=== PATIENT | male | born 1960 | race Caucasian/White ===

== ENCOUNTER 2022-08-01 15:05 | Emergency (ER) | payer MEDICARE, SELFPAY ==
--- NOTE | 2022-08-01 17:32 | EXP.UTC ---
Discharge Plan Disposition Patient Disposition: Home, Self-Care Condition: Good Referrals Follow up/Referrals: Bravo Anderson JR, MD [Physician] - See instructions Roger Fenton MD [Primary Care Provider] - See instructions Activity Restrictions/Add. Instructions Additional Instructions/Restrictions: Rest the extremity. Take tylenol for pain since you are unable to take ibuprofen. Follow up with Dr. Anderson (orthopedics). I put in a referral but you need to call his office and schedule an appointment. Follow up with your regular doctor. GO TO THE ER FOR ANY WORSENING SYMPTOMS Clinical Impressions Clinical Impression: Arm pain, right Instructions Patient Instructions: DI for Shoulder Pain Discharge ED Provider: Ryan Souza [facility] [place] General Stated complaint: [id number]@home fell, pain in Rt shoulder Time Seen by Provider: 08/01/22 17:31 History of Present Illness Provider Complaint: He states that yesterday he fell from sliding on snow and tripping on a water hose. He came down on his right shoulder and right upper arm. He c/o right shoulder and upper arm pain that is worse when he tries to use his arm much. Related Data Allergies Allergy/AdvReac Type Severity Reaction Status Date / Time No Known Allergies Allergy Verified 08/01/22 17:37 [facility] Disclaimer: The information contained in this section may have been updated after the patient was seen, as this information can be updated by other users. Social History Smoking Status: Never smoker alcohol intake: never current occupational status: employed Travel in the last 8 weeks: None ROS Obtained: Yes All systems reviewed & no additional complaints except as documented Constitutional Constitutional: Denies chills and Denies fever(s) Eyes Eyes: Denies eye discharge ENT Ears, Nose, Mouth, and Throat: Denies dizziness, Denies otalgia and Denies sore throat Cardiovascular Cardiovascular: Denies chest pain Respiratory Respiratory: Denies shortness of breath, Denies chest congestion, Denies cough, Denies stridor and Denies wheezing Gastrointestinal Gastrointestingal: Denies nausea or vomiting Musculoskeletal Musculoskeletal: Reports as per HPI Integumentary/Breasts Skin/Breast: Denies rash Neurologic Neurologic: Denies dizziness and Denies paresthesias Allergic/Immunologic Allergic/Immunologic: Denies wheezing Physical Exam General General appearance: alert and in no apparent distress Head Head exam: atraumatic, normocephalic and normal inspection Eye Eye exam: Present normal appearance, PERRL and EOMI ENT ENT exam: Present normal exam, normal oropharynx, mucous membranes moist, TM's normal bilaterally and normal external ear exam Neck Neck exam: Present normal inspection, full ROM and trachea midline; Absent meningismus or lymphadenopathy Chest Chest inspection: Present normal inspection and symmetric chest wall rise; Absent tenderness Respiratory Respiratory exam: Present normal lung sounds bilaterally; Absent respiratory distress Cardiovascular Cardiovascular exam: Present regular rate and normal rhythm; Absent JVD Abdominal Exam Abdominal exam: Present soft and normal bowel sounds; Absent distention, tenderness or guarding Extremities Exam Extremities exam: Present normal capillary refill; Absent calf tenderness Expanded Upper Extremity Exam Right: Shoulder exam: Present full ROM and tenderness; Absent swelling, abrasion, laceration, ecchymosis, deformity, crepitus, dislocation, erythema or tenderness over AC joint Arm exam: Present full ROM and tenderness; Absent swelling, abrasion, laceration, ecchymosis, deformity, crepitus, erythema or other Neuromotor exam: Normal wrist extension and thumb opposition Neurosensory exam: Normal radial nerve and ulnar nerve Vascular exam: Normal capillary refill Back Exam Back exam: Present normal inspecti
[2022-08-01 17:35] VITALS: BP 145/78; PULSE 73; RESP 17; TEMP 36.9; O2SAT 95; BMI 28.8
--- NOTE | 2022-08-01 17:37 | XR_ITS ---
PROCEDURE INFORMATION: Exam: XR Right Humerus Exam date and time: 08/01/2022 6:20 PM Age: 61 years old Clinical indication: Injury or trauma; Fall; Blunt trauma (contusions or hematomas); Arm, upper; Right TECHNIQUE: Imaging protocol: Radiologic exam of the Right humerus. Views: 2 or more views. COMPARISON: CR XR SHOULDER RT MIN 2V 08/01/2022 6:17 PM FINDINGS: Bones/joints: Degenerative changes in the glenohumeral joint and acromioclavicular joint. No humeral shaft fracture. Soft tissues: Normal. IMPRESSION: No humeral shaft fracture.
--- NOTE | 2022-08-01 17:37 | XR_ITS ---
PROCEDURE INFORMATION: Exam: XR Right Shoulder Exam date and time: 08/01/2022 6:17 PM Age: 61 years old Clinical indication: Injury or trauma; Fall; Blunt trauma (contusions or hematomas); Shoulder; Right TECHNIQUE: Imaging protocol: Radiologic exam of the Right shoulder. Views: 2 or more views. COMPARISON: No relevant prior studies available. FINDINGS: Bones/joints: Degenerative changes in the acromioclavicular joint and glenohumeral joint. There is no evidence of acute fracture.There is no evidence of malalignment or dislocation. Soft tissues: Normal. IMPRESSION: There is no evidence of acute fracture.There is no evidence of malalignment or dislocation.
[2022-08-01 19:07] VITALS: BP 145/78; PULSE 73; RESP 17; TEMP 36.9
== END 2022-08-01 19:07 | disposition home or self-care (01) ==
PROVIDERS: Emergency Provider Nurse Practitioner Family; PCP Family Medicine
DX: M79.601 Pain in right arm; M25.511 Pain in right shoulder; W00.2XXA Other fall from one level to another due to ice and snow, initial encounter
CPT/HCPCS: 73030; 73060; 99212; G0463

== ENCOUNTER 2022-08-18 13:59 | Emergency (ER) | payer MEDICARE, OTHER, SELFPAY ==
--- NOTE | 2022-08-18 14:04 | XR_ITS ---
FINAL REPORT CLINICAL HISTORY: PAIN fall x 3 weeks ago and lifting awning from camper felt pop in shoulder today pain limited rom FINDINGS: RIGHT SHOULDER: 3 views of the right shoulder werer obtained. There is no acute fracture or dislocation. There are mild degenerative changes of the acromioclavicular joint and glenohumeral joint. Soft tissues are unremarkable. IMPRESSION: Degenerative changes without acute fracture Reviewed, Interpreted and Dictated by Isac Greenfield III, MD Transcribed by Dulce Monet Authenticated and [facility]
[2022-08-18 14:20] VITALS: BP 134/80; PULSE 70; RESP 18; TEMP 36.8; O2SAT 98; BMI 28.8
--- NOTE | 2022-08-18 14:34 | EXP.UTC ---
Discharge Plan Disposition Patient Disposition: Home, Self-Care Condition: Good Prescriptions Prescriptions: No Action No Known Home Medications Referrals Follow up/Referrals: Roger Fenton MD [Primary Care Provider] - See instructions Jayshree Sarkar PA [Physician Store Standards Associate] - 08/23/22 9:30 am Activity Restrictions/Add. Instructions Additional Instructions/Restrictions: *RICE, Rest the extremity, Ice 15-20 minutes 3-4 times daily, Compress- wear the ayaka wrap as discussed as much as possible to help reduce swelling and pain, Elevate the extremity when at rest *Elevate when resting? *Since you was told not take Ibuprofen you can take Tylenol Make sure to keep appointment with Orthopedics as scheduled Clinical Impressions Clinical Impression: Right shoulder pain Instructions Patient Instructions: How To Perform RICE (Rest, Ice, Compress, Elevate) Discharge ED Provider: Marybel Murphy [facility] [place] General Stated complaint: shoulder pain Time Seen by Provider: 08/18/22 14:35 History of Present Illness Provider Complaint: Patient states that he initially hurt his right shoulder on 07/31 when he slipped in the snow on waterhose and fell and landed on his right shoulder States he came in on 08/01 and got xrays and followed up with Orthopedics and is suppose to start physical therapy soon States that earlier he was pushing a canopy and felt a popping sensation in his right shoulder and has been having pain again ever since States that he is not sure if he may have broken something or worsened his previous injury States that he wasnt suppose to follow up with Orthopedics until Sep so he came in to get it checked again to see if he may have done more damage to it Related Data Home Medications Medication Instructions Recorded Confirmed No Known Home Medications 08/11/22 Allergies Allergy/AdvReac Type Severity Reaction Status Date / Time No Known Allergies Allergy Verified 08/11/22 09:26 [facility] Disclaimer: The information contained in this section may have been updated after the patient was seen, as this information can be updated by other users. Medical History (Updated 08/18/22 @ 14:41 by Marybel Murphy APRN) History of stroke Hyperlipidemia Hypertension Social History (Updated 08/18/22 @ 14:36 by Nithya Snyder RN) Smoking Status: Never smoker alcohol intake: never current occupational status: employed Travel in the last 8 weeks: None ROS Obtained: Yes All systems reviewed & no additional complaints except as documented and Yes Systems reviewed as appropriate & no additional complaints except as documented Constitutional Constitutional: Reports system reviewed and no additional complaints, except as documented and Reports as per HPI Cardiovascular Cardiovascular: Reports system reviewed and no additional complaints, except as documented and Reports as per HPI Musculoskeletal Musculoskeletal: Reports system reviewed and no additional complaints, except as documented, Reports as per HPI and Reports other (Pain in right shoulder worse after pushing canopy earlier today) Physical Exam General General appearance: alert and in no apparent distress Respiratory Respiratory exam: Present normal lung sounds bilaterally; Absent respiratory distress or wheezes Cardiovascular Cardiovascular exam: Present regular rate, normal rhythm and normal heart sounds Expanded Upper Extremity Exam Right: Shoulder exam: Present tenderness and tenderness over AC joint; Absent swelling, ecchymosis, crepitus or erythema Comment: Pain worse with movement or trying to raise arm Neurological Exam Neurological exam: Present alert, oriented X3 and normal gait Medical Decision Making Brad Inquiry Pt receiving controlled substance: No Brad was queried for this patient: No Orders (Tests/Meds): ORDERS Category Date Time Status XR shoulder RT min 2V Stat Exams
[2022-08-18 14:55] VITALS: BP 134/80; PULSE 70; RESP 18; TEMP 36.8; O2SAT 98
== END 2022-08-18 15:11 | disposition home or self-care (01) ==
PROVIDERS: Emergency Provider Nurse Practitioner; PCP Family Medicine
DX: M25.511 Pain in right shoulder (principal); Y93.89 Activity, other specified
CPT/HCPCS: 73030; 99213; G0463

== ENCOUNTER → 2022-09-05 10:48 | Outpatient (CLI) | payer MEDICARE, OTHER, SELFPAY ==
--- NOTE | 2022-09-05 10:48 | MR_ITS ---
FINAL REPORT CLINICAL HISTORY: shoulder injury. RIGHT SHOULDER AND ARM PAIN. PATIENT FELL X2-3 WEEKS AGO AND LANDED ON SHOULDER. LIMITED ROM. WEAKNESS IN ARM. FINDINGS: Multiplanar MR imaging of the right shoulder was performed without contrast. There is motion artifact on many sequences. There is a complete tear of the distal supraspinatus tendon with tendon retraction to the level of the mid humeral head and mild muscle atrophy. A high-grade, full-thickness tear is seen at the footprint of the infraspinatus tendon. Posterior portion of the tendon remains intact. There is mild a.c. joint arthrosis with mild outlet narrowing. A moderate amount of fluid is present in the subacromial/subdeltoid bursa. There is labral degeneration with a possible posterior labral tear. The long head of the biceps tendon is intact. No significant glenohumeral joint effusion is identified. The musculature is intact. There is no evidence of soft tissue mass or cyst. IMPRESSION: Complete tear of the distal supraspinatus tendon with tendon retraction and muscle atrophy. High-grade full-thickness tear at the footprint of the infraspinatus tendon with a portion of the posterior tendon remaining intact. Labral degeneration with possible posterior labral tear. Mild a.c. joint arthrosis with moderate subacromial/subdeltoid bursitis. Reviewed, Interpreted and Dictated by Isac Greenfield III, MD Transcribed by Dulce Monet Authenticated and [facility]
== END ==
PROVIDERS: PCP Family Medicine; Visit Provider Physician Assistant Surgical
DX: S49.91XA Unspecified injury of right shoulder and upper arm, initial encounter (principal); M25.511 Pain in right shoulder; M79.601 Pain in right arm
CPT/HCPCS: 73221

== ENCOUNTER 2022-10-28 10:24 | Day surgery (SDC) | payer MEDICARE, OTHER, SELFPAY ==
[2022-10-27 11:17] VITALS: BMI 29.7
[2022-10-28 10:40] VITALS: BP 147/84; PULSE 73; RESP 20; TEMP 36.6; O2SAT 94
[2022-10-28 10:56] LABS: POC Glucose,Bedside 114 (70-110)
--- NOTE | 2022-10-28 10:57 | P.PN_ITS ---
[facility] [place] Disclaimer: The information contained in this section may have been updated after the patient was seen, as this information can be updated by other users. Medical History History of diabetes mellitus History of stroke Hyperlipidemia Hypertension Surgical History History of colonoscopy Family History Other Family history of hyperlipidemia Family history of hypertension Family history of myocardial infarction Social History Smoking Status: Former smoker alcohol intake: never substance use type: denies use current occupational status: retired and disabled Travel in the last 8 weeks: None caffeine: Yes [facility] Anesthesia Checklist Patient Identification Patient Identification: Arm Band Structural Data Admitted From: Home Planned Operative Procedure/s: Colonoscopy Consent for Planned Operative Procedure(s) Verified: Yes Verified Documents: Surgical Consent and History and Physical NPO Status Verified Time NPO: 00:00 Additional verifications Anesthesia Reactions: No Airway Assessment C-Spine Mobility Assessed: Yes TMJ Mobility Assessed: Yes Dentition: Good Dentition Neurological Assessment Level of Consciousness: Awake and Alert Anesthesia Plan Anesthesia Risk discussed: Yes Anesthesia Plan: Verified ASA Class: II Anesthesia Type: MAC
[2022-10-28 11:01] VITALS: O2SAT 97
--- NOTE | 2022-10-28 11:49 | HMH.SCOPE ---
Procedure: Date: 10/28/22 Patient Date of :: 1960 Procedure Performed:: Total colonoscopy to terminal ileum with numerous polypectomy complex large polyps Indications:: Patient is a 61-year-old. He has never had prior colonoscopy. He recently had positive Cologuard. Performing Provider:: Isac Mcguire MD Referring Provider:: Cali Fenton MD Sedation:: MAC sedation Procedure:: Patient history was obtained and appropriate physical examination was performed. Patient's medications and allergies were reviewed. Informed consent was obtained after explaining the benefits, alternatives, and risks of the procedure including, but not limited to, bleeding, perforation, missed lesions, and adverse reaction to anesthesia medications. Patient was transported to endoscopy procedure room. Patient was connected to monitoring devices. Throughout the procedure the patient's blood pressure, pulse, and oxygen saturations were monitored continuously. Patient identification and planned procedure were verified by the staff. Patient was positioned in lateral decubitus position. Digital anorectal exam was performed. Variable stiffness Olympus colonoscope was inserted and advanced under direct visualization to the cecum. Adequacy of the colonic preparation was noted. The colonoscope was advanced a short distance into the terminal ileum. The colonoscope was then slowly withdrawn while carefully examining the color, texture, anatomy, and integrity of the mucosoa circumferentially. Within the rectum retroflexion was performed. Colonoscope was then withdrawn. Findings:: Colonic preparation was good. Patient had multiple adenomatous appearing complex polyps. In the cecum there was a moderate polyp removed with cold snare with residual polyp base removed with hot biopsy forceps. In the ascending colon there was a moderate adenomatous polyp removed with cold snare. In the transverse colon there was a polyp removed with cold snare. Descending colon there was an adenomatous appearing polyp removed with cold snare. In the proximal sigmoid colon there were a couple of polyps removed with cold snare and 1 removed with biopsy forceps. In the distal sigmoid there were a couple polyps removed with biopsy forceps. In the rectum there were was a small adenomatous appearing polyp removed with snare. In the proximal rectum there was a moderately large polyp removed in a piecemeal fashion using hot snare. It did appear as though the polyp had been removed in its entirety but this is difficult to discern and surrounding tissue was biopsied with hot biopsy forceps. There was an adjacent small adenomatous appearing polyp removed with hot biopsy forceps. Retroflexion within the rectum revealed no evidence of any pathologic internal hemorrhoids. Impression: Polyps as noted above. He had a total of 11 polyps. Recommendations:: Repeat colonoscopy pending pathology. However, given the proximal rectal polyp along a ridge near the rectosigmoid I would advocate repeat colonoscopy likely in 6 to 12 months to ensure complete removal and rule out early recurrence. Complications:: Huey immediately apparent Estimated blood obtained (mL): 3
[2022-10-28 11:50] VITALS: BP 86/54; PULSE 74; RESP 16; TEMP 36.2; O2SAT 94
--- NOTE | 2022-10-28 11:56 | SUR.PHASEII ---
Danny Degroot,RN @ bedside w/ VRI I-pad reviewing procedure and DC instructions w/ family.
[2022-10-28 12:00] VITALS: BP 105/72; PULSE 71; RESP 17; O2SAT 100
[2022-10-28 12:10] VITALS: BP 102/74; PULSE 71; RESP 17; O2SAT 100
--- NOTE | 2022-10-28 12:12 | SUR.PHASEII ---
1200 - DC instructions reviewed w/ pt's via VRI by Danny Degroot RN and myself. Questions answered appropriately w/ signing of understanding confirmed through VRI. Paperwork reviewed and signed by as well.
[2022-10-28 12:20] VITALS: BP 115/73; PULSE 60; RESP 16; TEMP 36.6; O2SAT 96
== END 2022-10-28 12:25 | disposition home or self-care (01) ==
PROVIDERS: PCP Family Medicine; Visit Provider Surgery
PROC: 0DJD8ZZ Inspection of Lower Intestinal Tract, Via Natural or Artificial Opening Endoscopic (ICD-10-PCS; principal; 2022-10-28 11:30)
DX: R19.5 Other fecal abnormalities (principal); D12.0 Benign neoplasm of cecum; D12.2 Benign neoplasm of ascending colon; D12.3 Benign neoplasm of transverse colon; D12.4 Benign neoplasm of descending colon; D12.5 Benign neoplasm of sigmoid colon; D12.8 Benign neoplasm of rectum; E11.9 Type 2 diabetes mellitus without complications; Z79.899 Other long term (current) drug therapy
CPT/HCPCS: 45380; 45385; 82962; 88305; J2704

== ENCOUNTER 2023-06-16 16:03 | Emergency (ER) | payer MEDICARE, SELFPAY ==
[2023-06-16 16:05] VITALS: BP 144/81; PULSE 69; RESP 18; TEMP 36.6; O2SAT 95; BMI 29.1
--- NOTE | 2023-06-16 16:28 | PC.NURSE ---
DR [facility] AT BEDSIDE
[2023-06-16 16:30] VITALS: BP 134/79; PULSE 67; RESP 16; O2SAT 95
--- NOTE | 2023-06-16 16:30 | XR_ITS ---
PROCEDURE INFORMATION: Exam: XR Left Hand Exam date and time: 06/16/2023 4:54 PM Age: 62 years old Clinical indication: Injury or trauma; Other: Slammed in door; Crushing; Left; Index finger; Injury date: 06/16/23; Additional info: Crush injury L index finger TECHNIQUE: Imaging protocol: Radiologic exam of the left hand. Views: 3 or more views. COMPARISON: No relevant prior studies available. FINDINGS: Bones/joints: Very small fragment at the dorsal base of the distal phalanx index finger. Otherwise, no acute fracture or dislocation. Mild degenerative changes. Soft tissues: Unremarkable. IMPRESSION: Very small fragment at the dorsal base of the distal phalanx index finger may represent age-indeterminate avulsion fracture, correlate with point tenderness.
--- NOTE | 2023-06-16 16:39 | PC.NURSE ---
rad at BS for portable xray
[2023-06-16 16:45] VITALS: BP 120/81; PULSE 67; RESP 16; O2SAT 95
--- NOTE | 2023-06-16 16:47 | HMH.EDGENADL ---
Discharge Plan Disposition Patient Disposition: Home, Self-Care Condition: Good Prescriptions Prescriptions: New cephalexin 500 mg capsule 500 mg PO TID 7 Days Qty: 21 0RF No Action metformin 500 mg tablet 500 mg PO DAILY aspirin 81 mg tablet,delayed release (DR/EC) 81 mg PO DAILY vitamin O40-fnzkr acid 0.5-1 mg tablet 1 tab PO DAILY amlodipine 2.5 mg tablet 2.5 mg PO DAILY atorvastatin 20 mg tablet 20 mg PO DAILY cholecalciferol (vitamin D3) 10 mcg (400 unit) capsule 10 mcg PO DAILY lisinopril 2.5 mg tablet 2.5 mg PO DAILY triamterene-hydrochlorothiazid 37.5-25 mg capsule 1 cap PO DAILY bisoprolol fumarate 5 mg tablet 5 mg PO DAILY Referrals Follow up/Referrals: Roger Fenton MD [Primary Care Provider] - See instructions Activity Restrictions/Add. Instructions Additional Instructions/Restrictions: You were evaluated in the emergency department today. Your x-ray shows a possible avulsion fracture of your index finger, however I do not suspect this is truly a fracture, as you do not have tenderness over this area. We have provided you with a foam splint to protect your finger. Your wound was repaired with glue. Please leave the glue on. Do not remove it early. Do not submerge your hand underwater. Do not scrub the area. Follow-up with your primary care provider over the next week for a wound recheck. 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 Return to the emergency department for new or worsening symptoms. Clinical Impressions Clinical Impression: Laceration of finger, index Instructions Patient Instructions: DI for Laceration Repair, DI for Finger Fracture Discharge ED Provider: Bailey Sidhu General Adult HPI General Chief complaint: Wound/Laceration Stated complaint: AO ON 06/16 AT 3:40 PM CUT LT INDEX FINGER Time Seen by Provider: 06/16/23 16:22 Mode of Arrival: Ambulatory Source of Information: Patient Limitations: No Limitations Description of Symptoms (Recalled from ER Triage Doc. by RN): Laceration to L finger on pad of finger and on the side of finger near nail. Pt reports smashed his finger between a door and outside fence he was trying to move. Pt denies numbness/tingling/decreased sensation. History of Present Illness HPI narrative: This patient is a 62-year-old [id number] male with a history of hypertension, hyperlipidemia, and diabetes presenting to the emergency department for evaluation with concern for an injury to the distal aspect of his left index finger. He notes that it was smashed between a very heavy door and an outside fence. He denies any other injuries or concerns at this time. He still has intact range of motion and denies any numbness, tingling, or other concerns. He has otherwise been well. He is unsure when his last tetanus shot was. Related Data Home Medications Medication Instructions Recorded Confirmed amlodipine 2.5 mg tablet 2.5 mg PO DAILY BP 08/23/22 11/18/22 aspirin 81 mg tablet,delayed 81 mg PO DAILY CAD 08/23/22 11/18/22 release atorvastatin 20 mg tablet 20 mg PO DAILY HLD 08/23/22 11/18/22 bisoprolol fumarate 5 mg tablet 5 mg PO DAILY HR 08/23/22 11/18/22 cholecalciferol (vitamin D3) 10 10 mcg PO DAILY Supplement 08/23/22 11/18/22 mcg (400 unit) capsule lisinopril 2.5 mg tablet 2.5 mg PO DAILY BP 08/23/22 11/18/22 metformin 500 mg tablet 500 mg PO DAILY DM 2 08/23/22 11/18/22 triamterene 37.5 1 cap PO DAILY BP 08/23/22 11/18/22 mg-hydrochlorothiazide 25 mg capsule vitamin B12 0.5 mg-folic acid 1 mg 1 tab PO DAILY Supplement 08/23/22 11/18/22 tablet Previous Rx's Medication Instructions Recorded cephalexin 500 mg capsule 500 mg PO TID 7 days #21 caps 06/16/23 Allergies Allergy/AdvReac Type Severity Reaction Status Date / Time No Known Allergies Allergy Verified 11/18/22 10:13 [facility]
[2023-06-16 17:00] VITALS: BP 119/79; PULSE 68; RESP 16; O2SAT 93
--- NOTE | 2023-06-16 17:25 | PC.NURSE ---
L hand soaking in iodine/sterile saline
[2023-06-16 17:39] VITALS: BP 114/75; PULSE 78; RESP 18; TEMP 36.6; O2SAT 97
[2023-06-16 17:54] VITALS: BP 120/80; PULSE 68; RESP 16; O2SAT 98
== END 2023-06-16 18:04 | disposition home or self-care (01) ==
PROVIDERS: Emergency Provider Emergency Medicine; PCP Family Medicine
DX: S61.211A Laceration without foreign body of left index finger without damage to nail, initial encounter (principal); E11.9 Type 2 diabetes mellitus without complications; I10 Essential (primary) hypertension; E78.5 Hyperlipidemia, unspecified; Z79.84 Long term (current) use of oral hypoglycemic drugs; W23.0XXA Caught, crushed, jammed, or pinched between moving objects, initial encounter
CPT/HCPCS: G0168; 73130; 90715; 96365; 96372; 99284; J0690

== ENCOUNTER 2024-06-04 13:10 | Outpatient (CLI) | payer MEDICARE, SELFPAY ==
--- NOTE | 2024-06-04 13:13 | CT_ITS ---
FINAL REPORT CLINICAL HISTORY: .former smoker , quit 8 years ago , smoked 1-2 packs for 39 years FINDINGS: CT CHEST SCREENING CTDI vol (mGy): 2.90 DLP (mGy-cm): 100.29 Axial images were obtained from the lung apex to the mid abdomen by computed tomography. Low-dose protocol was utilized. FINDINGS: CHEST: There is no axillary adenopathy. There is no hilar or mediastinal adenopathy. LAD coronary artery calcifications are noted. The heart is proper size. There is evidence of old calcified granulomatous disease. There is no pericardial or pleural effusion. Limited images of the upper abdomen are unremarkable. Lung window images demonstrate a nodule in the inferior right upper lobe, just above the minor fissure, on image 45 of series 4.. IMPRESSION: Lung RADS category 2S. Recommend 12 month follow-up low-dose chest CT. S modifier for coronary artery calcifications. Reviewed, Interpreted and Dictated by Fede Rosa MD Transcribed by Iliana Vergara Authenticated and [facility]
== END 2024-06-04 23:59 | disposition home or self-care (01) ==
LOC: RAD 13:10
PROVIDERS: PCP Family Medicine; Visit Provider Family Medicine
DX: Z87.891 Personal history of nicotine dependence (principal)
CPT/HCPCS: 71271